=== PATIENT | female | born 1975 | race Caucasian/White ===

== ENCOUNTER 2017-01-20 16:19 | Emergency (ER) | payer OTHER ==
[~2017-01-20] VITALS: Ht 149.9 cm; Wt 82.5 kg
[2017-01-20 16:22] VITALS: Ht 149.9 cm; Wt 82.5 kg
[2017-01-20] MEDS ORDERED: DIPHENHYDRAMINE 50 MG INJ IV STA (17:42)
[2017-01-20] MEDS ORDERED: SOD CHLORIDE 0.9% 1,000 ML IV STA (17:42)
[2017-01-20] MEDS ORDERED: KETOROLAC 30 MG INJ IV STA (17:42)
[2017-01-20] MEDS ORDERED: METOCLOPRAMIDE 10 MG INJ IV STA (17:42)
--- NOTE | 2017-01-20 18:48 | RADRPT ---
PROCEDURE: CT BRAIN WITHOUT CONTRAST. CLINICAL INDICATION: Headache TECHNIQUE: A CT of the brain was performed on a multidetector high-resolution CT scanner utilizing axial imaging from the skull base through the vertex without IV contrast. Multiplanar reformatted images were made. Images were reviewed on a PACS workstation. The CTDIvol is 45 mGy and the DLP is 630.2 mGycm. One or more of the following dose reduction techniques were used: - Automated exposure control. - Adjustment of the mA and/or kV according to patient size. - Use of iterative reconstruction technique. COMPARISON: None FINDINGS: The posterior fossa structures are unremarkable. The lv, midbrain, and medulla appear to be with n ormal limits. There is no evidence of acute intracranial hemorrhage, infarct, or extra-axial fluid collection. No gross mass effect or midline shift. Cerebral sulci, cisternal spaces, and ventricles are within norm al limits. The visualized paranasal sinuses are clear. The mastoid air cells are well-aerated. The calvarium is unremarkable. IMPRESSION: 1. No evidence of acute intracranial hemorrhage, infarct, or extra-axial fluid collection. 2. Unremarkable CT brain. RPTAT: AAPP Physician Amadou Date Time Electronically viewed and signed by Physician Amadou on 01/20/2017 18:48 BEAU/
[2017-01-20] MEDS ORDERED: NAPR-260 PO (19:37)
--- NOTE | 2017-01-28 19:59 | ERD ---
ER Documentation Chief Complaint Chief Complaint headache x 1 week HPI Patient is a 41-year-old female with no significant past medical history presenting to the emergency department complaints of intermittent left occipital area headache for the past 3 weeks. Symptoms are daily. Symptoms are worsening. She describes it as a burning sensation. She reports 10 out of 10 pain. She denies vision loss, syncope, diplopia, fevers, or other symptoms currently. She states the pain radiates down her left neck. She states she does have history of headaches for many years. ROS All systems reviewed and are negative except as per history of present illness. Medications Home Meds Active Scripts Naproxen* (Naprosyn*) 500 Mg Tablet, 500 MG PO BID Y for PAIN AND/OR INFLAMMATION, #20 TAB Prov:REMIGIO MELTON PA-C 01/20/17 Allergies Allergies: Coded Allergies: No Known Allergies (Verified Allergy, Mild, 01/09/12) PMhx/Soc History of Surgery: No Anesthesia Reaction: No Hx Neurological Disorder: No Hx Respiratory Disorders: No Hx Cardiac Disorders: No Hx Psychiatric Problems: No Hx Miscellaneous Medical Probl: No (DENIES SURGERIES/PMH) Hx Alcohol Use: No Hx Substance Use: No Hx Tobacco Use: No Smoking Status: Never smoker Physical Exam Physical Exam Const: Nontoxic, well-appearing female in no acute distress. Head: Atraumatic Eyes: Normal Conjunctiva ENT: Normal External Ears, Nose and Mouth. Neck: Full range of motion..~ No meningismus. Resp: Clear to auscultation bilaterally Cardio: Regular rate and rhythm, no murmurs Skin: No petechiae or rashes Ext: No cyanosis, or edema Neur: Awake and alert Psych: Normal Mood and Affect Results 24 hrs Laboratory Tests Test 01/20/17 17:55 01/20/17 18:48 White Blood Count 6.810^3/ul Red Blood Count 4.7110^6/ul Hemoglobin 12.8g/dl Hematocrit 40.1% Mean Corpuscular Volume 85.1fl Mean Corpuscular Hemoglobin 27.2pg Mean Corpuscular Hemoglobin Concent 31.9g/dl Red Cell Distribution Width 13.1% Platelet Count 95297^3/UL Mean Platelet Volume 10.5fl Neutrophils % 52.8% Lymphocytes % 35.1% Monocytes % 8.1% Eosinophils % 3.5% Basophils % 0.4% Nucleated Red Blood Cells % 0.0/100WBC Neutrophils # 3.610^3/ul Lymphocytes # 2.410^3/ul Monocytes # 0.610^3/ul Eosinophils # 0.210^3/ul Basophils # 0.010^3/ul Nucleated Red Blood Cells # 0.010^3/ul Prothrombin Time 12.5Sec Prothrombin Time Ratio 1.0 INR International Normalized Ratio 0.93 Activated Partial Thromboplast Time 27.5Sec Sodium Level 143mmol/L Potassium Level 3.7mmol/L Chloride Level 106mmol/L Carbon Dioxide Level 26mmol/L Anion Gap 15 Blood Urea Nitrogen 17mg/dl Creatinine 0.72mg/dl Glucose Level 88mg/dl Calcium Level 8.9mg/dl Urine Color YELLOW Urine Clarity CLEAR Urine pH 7.0 Urine Specific [place] 1.019 Urine Ketones NEGATIVEmg/dL Urine Nitrite NEGATIVEmg/dL Urine Bilirubin NEGATIVEmg/dL Urine Urobilinogen NEGATIVEmg/dL Urine Leukocyte Esterase NEGATIVELeu/ul Urine Hemoglobin NEGATIVEmg/dL Urine Glucose NEGATIVEmg/dL Urine Total Protein NEGATIVEmg/dl Current Medications Medications (Trade) Dose Ordered Sig/Cori Route PRN Reason Start Time Stop Time Status Last Admin Dose Admin Sodium Chloride (NS) 1,000 ml @ 1,000 mls/hr Q1H STAT IV 01/20/17 17:42 01/20/17 18:41 DC 01/20/17 17:58 Metoclopramide HCl (Reglan) 10 mg ONCE STAT IV 01/20/17 17:42 01/20/17 17:44 DC 01/20/17 17:57 Ketorolac Tromethamine (Toradol) 30 mg ONCE STAT IV 01/20/17 17:42 01/20/17 17:44 DC 01/20/17 17:58 Diphenhydramine HCl (Benadryl) 50 mg ONCE STAT IV 01/20/17 17:42 01/20/17 17:44 DC 01/20/17 17:57 Procedures/MDM 41-year-old female presents to the emergency department with complaints of headache. The examination is essentially unremarkable. The patient was placed on a stretcher, IV line established, she is given IV fluids, IV Reglan, IV Toradol, IV Benadryl. She was feeling much improved on reevaluation. CBC showed no signs of leukocytosis or anemia. Chemistry panel was unremarkable. Urinalysis was unremarkable. CT brain was ordered and was unremarkable. The patient was stable for discharge and outpatient management with a prescription for naproxen. She is to have close follow-up with her primary care physician. Copies of all results were given to the patient. She agreed with the discharge plan a diagnosis. The patient may return immediately for any new or worsening symptoms. ROCEDURE: CT BRAIN WITHOUT CONTRAST. CLINICAL INDICATION: Headache TECHNIQUE: A CT of the brain was performed on a multidetector high-resolution CT scanner utilizing axial imaging from the skull base through the vertex without IV contrast. Multiplanar reformatted images were made. Images were reviewed on a PACS workstation. The CTDIvol is 45 mGy and the DLP is 630.2 mGycm. One or more of the following dose reduction techniques were used: - Automated exposure control. - Adjustment of the mA and/or kV according to patient size. - Use of iterative reconstruction technique. COMPARISON: None FINDINGS: The posterior fossa structures are unremarkable. The lv, midbrain, and medulla appear to be with normal limits. There is no evidence of acute intracranial hemorrhage, infarct, or extra-axial fluid collection. No gross mass effect or midline shift. Cerebral sulci, cisternal spaces, and ventricles are within normal limits. The visualized paranasal sinuses are clear. The mastoid air cells are well- aerated. The calvarium is unremarkable. IMPRESSION: 1. No evidence of acute intracranial hemorrhage, infarct, or extra-axial fluid collection. 2. Unremarkable CT brain. RPTAT: AAPP Physician Amadou Date Time Electronically viewed and signed by Physician Amadou on 01/20/2017 18:48 Departure Diagnosis: Primary Impression: Headache Headache type: unspecified Headache chronicity pattern: acute headache Intractability: not intractable Qualified Code: R51 - Acute nonintractable headache, unspecified headache type Condition: Fair Patient Instructions: Self-Care for Headaches Referrals: LYNDSEY TABOR (PCP) Additional Instructions: No mas mejor en 2-3 novak, regresar. Mas peor en 24 horas, regresear rapidamente. Ir a doctor primario en 1-2 novak. Usar instrucciones cuando kirill medicamento. REMIGIO MELTON PA-C Jan 28, 2017 19:59
== END 2017-01-20 19:46 | disposition home or self-care (01) ==
LOC: FTE 16:19
DX: R51 Headache (principal); R06.02 Shortness of breath
CPT/HCPCS: 36415; 70450; 80048; 81003; 85025; 85610; 85730; 96374; 96375; J1200; J1885; J2765; J7030; Z7502

== ENCOUNTER 2018-08-15 01:27 | Emergency (ER) | payer OTHER ==
[~2018-08-15] VITALS: Wt 83.9 kg
[~2018-08-15 01:27] MED LIST: NAPR-985 PO
[2018-08-15] MEDS ORDERED: CIPROFLOXACIN 500 MG TAB PO ONE (02:30)
[2018-08-15 03:00] VITALS: BP 163/83; PULSE 77; RESP 18
--- NOTE | 2018-08-15 03:47 | ERD ---
ER Documentation Chief Complaint Chief Complaint EXPOSED TO FAMILY MEMBER WITH MENNINGITIS HPI This is a 42-year-old female presents to the ED for prophylactic meningitis medicatin. Patient lives with a family member who was recently seen here in the ED and diagnosed with meningitis. She is here for a prophylactic dose of her medication. She denies any neck stiffness, fevers, headache, changes in vision, or focal neurological deficits. No rash. She otherwise feels fine has no other complaints. ROS All systems reviewed and are negative except as per history of present illness. Medications Home Meds Active Scripts Naproxen* (Naprosyn*) 500 Mg Tablet, 500 MG PO BID PRN for PAIN AND/OR INFLAMMATION, #20 TAB Prov:REMIGIO MELTON PA-C 01/20/17 Allergies Allergies: Coded Allergies: No Known Allergies (Verified Allergy, Mild, 01/09/12) PMhx/Soc History of Surgery: No Anesthesia Reaction: No Hx Neurological Disorder: No Hx Respiratory Disorders: No Hx Cardiac Disorders: Yes (htn ) Hx Psychiatric Problems: No Hx Miscellaneous Medical Probl: No Hx Alcohol Use: No Hx Substance Use: No Hx Tobacco Use: No Smoking Status: Never smoker Physical Exam Vitals Vital Signs Date Temp Pulse Resp B/P (MAP) Pulse Ox O2 O2 Flow FiO2 Time Delivery Rate 08/15/18 98.2 82 18 175/103 99 01:33 (127) Physical Exam Const: No acute distress Head: Atraumatic Eyes: Normal Conjunctiva ENT: Normal External Ears, Nose and Mouth. Neck: Full range of motion. No meningismus. Resp: Clear to auscultation bilaterally Cardio: Regular rate and rhythm, no murmurs Skin: No petechiae or rashes Ext: No cyanosis, or edema Neuro: M/S: Alert and oriented Face: EOMI, face and pharynx with normal sensation and function Motor: Normal strength throughout Sensation: Normal sensation throughout Speech: Normal Cerebel: Normal coordination Normal gait Psych: Normal Mood and Affect Results 24 hrs Current Medications Medications Dose Sig/Cori Start Time Status Last (Trade) Ordered Route PRN Stop Time Admin Dose Reason Admin 500 mg ONCE ONCE 08/15/18 DC 08/15/18 Ciprofloxacin PO 02:30 02:12 (Cipro) 08/15/18 02:31 Procedures/MDM This is a 42-year-old female who was recently exposed to a family member who was diagnosed with bacterial versus viral meningitis. She was given a prophylactic dose of ciprofloxacin here. She has no focal neurological deficits on physical exam. She has no fever here and vital signs are normal. He has no evidence suggesting meningitis, encephalitis, or any other acute emergent process at this time. She was discharged home in stable condition. Strict return precautions were discussed. Blood Pressure Assessment: Patient's blood pressure was elevated (>120/80) but appears stable without evidence of hypertension emergency or urgency. The patient was counseled about the risks of hypertension and urged to pursue outpatient monitoring and therapy within a week with their primary care physician. Departure Diagnosis: Primary Impression: Meningitis exposure Additional Impression: Encounter for medication management Condition: Stable Patient Instructions: Bacterial Meningitis Additional Instructions: Call your primary care doctor TOMORROW for an appointment during the next 2-4 days and bring all the information and medications prescribed. If the symptoms get worse and your provider is unavailable, return to the E mergency Department immediately. TREMAYNE DANIELLE PA-C August 15, 2018 03:47
== END 2018-08-15 03:00 | disposition home or self-care (01) ==
LOC: FTE 01:27 → E/R 03:00
DX: Z20.811 Contact with and (suspected) exposure to meningococcus (principal); I10 Essential (primary) hypertension
CPT/HCPCS: Z7502; Z7610; 99283